=== PATIENT | female | born 1990 | race Two or more races ===

== ENCOUNTER 2016-10-09 23:02 | Emergency (ER) | payer OTHER ==
--- NOTE | 2016-10-10 02:57 | ER Document Report ---
HPI - HPI Onset: Other - april Onset/Duration: Gradual, Persistent Quality of pain: Achy Pain Level: 4 Context: 25 yo female c/o low back pain since april. No radiculopathy or saddle anesthesia, not radiates into her chest. Associated Symptoms: None Exacerbated by: Movement Relieved by: Denies - ROS ROS below otherwise negative: Yes Systems Reviewed and Negative: Yes All other systems reviewed and negative - REPRODUCTIVE LMP: 07/2016 on Nexplanon Reproductive: DENIES: : - DERM Skin Color: Normal Past Medical History - General Information source: Patient - Social History Smoking Status: Unknown if Ever Smoked Frequency of alcohol use: None Drug Abuse: None Lives with: Family Family History: Reviewed & Not Pertinent, Other Renal/ Medical History: Denies: Hx Peritoneal Dialysis Musculoskeltal Medical History: Reports Other - chornic low back pian Psychiatric Medical History: Reports: Hx Anxiety Past Surgical History: Reports: Hx Oral Surgery - [place] teeth, Other - Lipoma removed - Immunizations Immunizations up to date: Yes Hx Diphtheria, Pertussis, Tetanus Vaccination: Yes Vertical Provider Document - CONSTITUTIONAL Agree With Documented VS: Yes Exam Limitations: No Limitations General Appearance: No Apparent Distress - INFECTION CONTROL TRAVEL OUTSIDE OF THE [place] IN LAST 30 DAYS: No - HEENT HEENT: Normal ENT Exam - NECK Neck: Supple - RESPIRATORY Respiratory: Breath Sounds Normal, No Respiratory Distress Notes: tender upper bilaterl chest wall - CARDIOVASCULAR Cardiovascular: Regular Rate, Regular Rhythm - GI/ABDOMEN Gastrointestinal: Abdomen Soft, Abdomen Non-Tender, No Organomegaly - BACK Back: Normal Inspection. negative: CVA Tenderness-Right, CVA Tenderness-Left - MUSCULOSKELETAL/EXTREMETIES Musculoskeletal/Extremeties: MAEW, FROM, Tender - lumbar musces - NEURO Level of Consciousness: Awake, Alert Motor/Sensory: No Motor Deficit, No Sensory Deficit Deep Tendon Reflexes: 2+ - lana ankle and patellar - DERM Integumentary: Warm, Dry, No Rash Discharge - Discharge Clinical Impression: Exacerbation of Chronic back pain, Anterior chest wall tenderness Condition: Good Disposition: HOME, SELF-CARE Instructions: Warm Packs ([facility]), Oral Narcotic Medication ([facility]), Low Back Pain ( [facility]) Additional Instructions: See your doctor on Tuesday for follow-up Warm compress Return to the emergency room if worse Prescriptions: Ibuprofen [Motrin 800 mg Tablet] 800 mg PO Q8HP PRN #30 tab PRN Reason: Cyclobenzaprine HCl [Flexeril 10 Mg Tablet] 10 mg PO TIDP PRN #20 tablet PRN Reason: Forms: Return to Work
[2016-10-10] MEDS ORDERED: HYDROCODONE/ACETAMINOPHEN 5-325 MG 6 TAB/DSPK PO PRN (03:31)
[2016-10-10 03:58] VITALS: BP 113/72
== END 2016-10-10 03:45 | disposition home or self-care (01) ==
LOC: ER 23:02
DX: R07.89 Other chest pain (principal); M54.5 Low back pain; G89.29 Other chronic pain
CPT/HCPCS: 99283